=== PATIENT | male | born 1955 | race Caucasian/White ===

== ENCOUNTER 2017-10-27 10:56 | Emergency (ER) | payer OTHER ==
[2017-10-27 10:59] VITALS: BP 172/93; PULSE 76; RESP 16; TEMP 98.7; O2SAT 98
[2017-10-27] MEDS ORDERED: INDO50CA PO (11:49)
--- NOTE | 2017-10-27 11:50 | PD ---
HPI Chief Complaint: Pain: Acute or Chronic Time Seen by Provider: 11:38 Travel History International Travel<30 days: No Contact w/Intl Traveler<30days: No Traveled to known affect area: No History of Present Illness HPI 62-year-old male here with nontraumatic left knee pain, swelling, warmth 4 days. Patient has a history of gout. Reports the symptoms are similar to his previous gout in his ankles. He denies fever or chills. Patient is currently taking his allopurinol. He has a prescription for Indocin but wasn't sure if he should start taking it. Pain is aggravated by walking and range of motion. No alleviating factors. PFSH Past Medical History Narrative Medical Significant for gout Social History Tobacco Use: No Allergies-Medications (Allergen,Severity, Reaction): Coded Allergies: No Known Allergies (Unverified , 10/27/17) Reported Meds & Prescriptions Reported Meds & Active Scripts Active Indomethacin 50 Mg Cap 50 Mg PO TID 5 Days Take with food, milk, or antacids to decrease stomach adverse effects. Reported Allopurinol 100 Mg Tab 100 Mg PO DAILY Review of Systems Except as stated in HPI: all other systems reviewed are Neg General / Constitutional: No: Fever Physical Exam Narrative GENERAL: Alert male. Nontoxic appearing. SKIN: Warm and dry. HEAD: Normocephalic. EYES: No scleral icterus. No injection or drainage. NECK: Supple, trachea midline. No JVD or lymphadenopathy. CARDIOVASCULAR: Regular rate and rhythm without murmurs, gallops, or rubs. RESPIRATORY: Breath sounds equal bilaterally. No accessory muscle use. GASTROINTESTINAL: Abdomen soft, non-tender, nondistended. MUSCULOSKELETAL: No cyanosis, or edema. Left knee: Moderate amount of swelling with mild warmth and erythema. No deformity. The joint is stable. No abrasions or wounds to the knee. 2+ distal pulses. His Refill. BACK: Nontender without obvious deformity. No CVA tenderness. Data Data Last Documented VS Vital Signs Date Time Temp Pulse Resp B/P (MAP) Pulse Ox O2 Delivery O2 Flow Rate FiO2 10/27/17 12:18 10/27/17 10:59 98.7 76 16 98 Room Air Orders Orders Dexamethasone Inj (Decadron Inj) (10/27/17 12:00) Ed Discharge Order (10/27/17 11:58) [facility] Medical Decision Making Medical Screen Exam Complete: Yes Emergency Medical Condition: Yes Differential Diagnosis Gout, arthritis, unlikely septic joint Narrative Course 62-year-old male here with nontraumatic left knee pain, swelling, warmth 4 days. Patient has a history of gout. Reports the symptoms are similar to his previous gout in his ankles. He denies fever or chills. On exam he is well- appearing. Nontoxic. Vital signs are stable. Hypertensive likely due to pain. The joint is noticeably swollen with mild erythema. This appears to be gout. I do not suspect septic joint. He will be given a shot of Decadron and discharged home with Indocin and Ultram. Diagnosis Primary Impression: Gout Qualified Codes: M10.9 - Gout, unspecified Referrals: Primary Care Physician Additional Instructions: Follow a gout safe diet. Take the medications as prescribed. Return if he developed new or worsening symptoms such as high fever, chills, increasing pain, redness swelling of the knee Scripts Indomethacin (Indomethacin) 50 Mg Cap 50 MG PO TID for 5 Days, CAP 0 Refills Take with food, milk, or antacids to decrease stomach adverse effects. Prov: Tayla Peguero 10/27/17 Disposition: 01 DISCHARGE HOME Condition: Stable Tayla Peguero Oct 27, 2017 11:50
[2017-10-27] MEDS ORDERED: TRAM50 PO (11:51)
[2017-10-27] MEDS ORDERED: ALLO100T PO (11:54)
[2017-10-27] MEDS ORDERED: DEXAMETHASONE SOD PHOS 4 MG/ML VIAL IM ONE (12:00)
== END 2017-10-27 12:17 | disposition home or self-care (01) ==
LOC: NEPK 10:56
DX: M10.9 Gout, unspecified (principal); Z79.899 Other long term (current) drug therapy
CPT/HCPCS: 96372; 99284; J1100